=== PATIENT | male | born 1950 | race Caucasian/White ===

== ENCOUNTER → 2019-08-24 | Outpatient (CLI) | payer MEDICARE | END | disposition home or self-care (01) | LOC: LAB 13:29 → LAB SHORT 13:29 | PROVIDERS: Hospitalist | DX: Z12.5 Encounter for screening for malignant neoplasm of prostate (principal); N52.9 Male erectile dysfunction, unspecified; R68.82 Decreased libido | CPT/HCPCS: 84403; G0103 ==

== ENCOUNTER 2020-06-06 13:34 | Day surgery (SDC) | payer OTHER ==
[~2020-06-06] VITALS: Ht 175.3 cm; Wt 94.2 kg
[~2020-06-06 13:34] MED LIST: NAPR220 PO
--- NOTE | 2020-06-06 15:25 | NUR ---
Ambulatory in Day Surgery Surgical site prepped with 2% Chlorhexidine cloth wipe. History, Chart, Medications and Allergies reviewed before start of procedure.Lungs clear T/O to Auscultation. Patient confirms NPO status and agrees with scheduled surgery. Patient reports completing Chlorhexadine shower X2 prior to admission to hospital. GAVE PO MEDS AND STARTED VANCOMYCIN PER KEVAN ALONG WITH MOUTHWASH AND NASAL NETWORK DESKTOP SUPPORT SPECIALIST IN [place].
[2020-06-07 05:05] LABS: BASOPHILS ABSOLUTE AUTO 0.02 K/mm3 (0.00-0.23); BASOPHILS PERCENT AUTO 0 % (0-2); EOSINOPHILS ABSOLUTE AUTO 0.01 K/mm3 (0.00-0.68); EOSINOPHILS PERCENT AUTO 0 % (0-6); Hematocrit 45.3 % (37.0-53.0); Hemoglobin 14.9 g/dL (13.5-17.5); IMMATURE GRAN ABSOLUTE AUTO 0.07 K/mm3 (0.00-0.10); IMMATURE GRAN PERCENT AUTO 1 % (0-1); LYMPHOCYTES ABSOLUTE AUTO 1.12 K/mm3 (0.84-5.20); LYMPHOCYTES PERCENT AUTO 8 % (21-46); MONOCYTES ABSOLUTE AUTO 0.95 K/mm3 (0.16-1.47); MONOCYTES PERCENT AUTO 6 % (4-13); Mean Corpuscular HGB 30.3 pg (26.0-34.0); Mean Corpuscular HGB Conc 32.9 g/dL (31.5-36.5); Mean Corpuscular Volume 92 fL (80-100); Mean Platelet Volume 10.9 fL (9.1-12.4); NEUTROPHILS ABSOLUTE AUTO 12.59 K/mm3 (1.96-9.15); NEUTROPHILS PERCENT AUTO 85 % (41-73); Platelet Count 280 K/mm3 (150-400); RDW Coefficient Variation 12.7 % (11.7-14.2); RDW Standard Deviation 43.7 fL (35.1-46.3); Red Blood Cell Count 4.92 M/mm3 (4.30-5.90); White Blood Cell Count 14.76 K/mm3 (4.00-11.30)
[2020-06-07 05:27] LABS: Anion Gap 6 mmol/L (6-16); Blood Urea Nitrogen 11 mg/dL (8-24); CO2, Blood 26 mmol/L (21-32); Calcium, Blood 8.8 mg/dL (8.5-10.1); Chloride, Blood 107 mmol/L (98-108); Creatinine, Blood 0.73 mg/dL (0.60-1.20); Glomerular Filtration Rate >60 (60-); Glucose, Blood 116 mg/dL (70-99); Magnesium, Blood 2.1 mg/dL (1.6-2.4); Potassium, Blood 4.2 mmol/L (3.5-5.5); Sodium, Blood 139 mmol/L (136-145)
--- NOTE | 2020-06-07 06:36 | NUR ---
SHIFT SUMMARY: LUCA IS A&OX4. VSS, NO ACUTE EVENTS OVERNIGHT, ORA. HE IS TOLERATING PO INTAKE WELL. HE REPORTS ADEQUATE PAIN CONTROL WITH THE PHARMACOLOGIC INTERVENTIONS. PAS, FORREST HOSE, AND POLAR PACK IN PLACE. HE IS A ONE PERSON ASSIST TO THE BATHROOM. HE HAS AMBULATED IN THE HALLWAY WITHOUT DIFFICULTY. HE REPORTS NO DIFFICULTIES URINATING AND FEELS THAT HE IS EVACUATING LARGE AMOUNTS EACH VOID. DRESSING TO R KNEE C/D&I. HE IS LYING IN BED WITH HIS CALL LIGHT IN REACH. WILL REPORT TO DAY SHIFT RN.
--- NOTE | 2020-06-07 07:41 | NUR ---
DR HENDRICKSON BEEN HERE AND PLACED NEW DRESSING. PT REPORTS HAVING WALKER PRESENT. REPORTS HAVING MEDICATIONS INCLUDING PAIN MEDICATION AT HOME.
--- NOTE | 2020-06-07 08:07 | NUR ---
Patient gave permisson for this student to particpate in care
[2020-06-07] MEDS ORDERED: ASPI81CH PO (09:00)
[2020-06-07] MEDS ORDERED: OXAYDO5 M1 PO (09:00)
[2020-06-07] MEDS ORDERED: PROM12.5S PO (09:01)
--- NOTE | 2020-06-07 10:11 | NUR ---
DISCHARGE: PT EATING AND DRINKING,VOIDING, PASSING GAS. PT REPORTS PAIN CONTROLLED ON PO PAIN MEDICATION. PT BEEN CLEARED BY THERAPY TO GO HOME. PT REPORTS HAVING PAIN MEDICATION AT HOME. PT HAS OWN WALKER HERE. PT/FAMILY REPORTS UNDERSTANDING OF DISCHARGE INSTRUCTIONS INCLUDING MEDICATIONS, ICE MACHINE, DRESSING CHANGES. PT SENT WITH DRESSING SUPPLIES, WALKER, ICE MACHINE, PAPERWORK, WELL PT'S BELONGINGS. PT FAMILY GIVING PT RIDE HOME.
== END 2020-06-07 10:13 | disposition home or self-care (01) ==
LOC: ORSCMMR 13:34 → ORD 17:15 → SURS 18:29 → ORD 20:30 → ORSCMMR 06-07 10:13 → SURS 06-07 10:13
PROVIDERS: Orthopaedic Surgery
PROC: 8E0YXBZ Computer Assisted Procedure of Lower Extremity (ICD-10-PCS; principal; 2020-06-06 17:15)
PROC: 0SRC069 Replacement of Right Knee Joint with Oxidized Zirconium on Polyethylene Synthetic Substitute, Cemented, Open Approach (ICD-10-PCS; principal; 2020-06-06 17:15)
DX: M17.11 Unilateral primary osteoarthritis, right knee (principal); I10 Essential (primary) hypertension; E66.9 Obesity, unspecified; Z68.31 Body mass index [BMI] 31.0-31.9, adult
CPT/HCPCS: 36415; 73560-RT; 80048; 83735; 85025; 88300; 97110; 97161; 97530; A9270; A9270-GY; C1713; C1776; J0171; J0690; J0735; J1100; J1885; J2250; J2405; J2704; J2795; J3010; J3370; J7120

== ENCOUNTER 2021-07-17 10:56 | Day surgery (SDC) | payer OTHER ==
[~2021-07-17] VITALS: Ht 175.3 cm; Wt 94.2 kg
[~2021-07-17 10:56] MED LIST changes: +ASPI81CH PO; +HYDR1TAB94 PO; +LOSA25 PO; +OXAYDO5 M1 PO; +PROM12.5S PO
--- NOTE | 2021-07-17 12:39 | NUR ---
History, Chart, Medications and Allergies reviewed before start of procedure. Lungs clear T/O to Auscultation. Patient confirms NPO status and agrees with scheduled surgery. Pre-Op teaching done. Pt verbalizes understanding. Patient reports completing Chlorhexadine shower X2 prior to admission to hospital.
--- NOTE | 2021-07-17 14:01 | NUR ---
PT TO BATHROOM AND BACK. REPORT TO DWIGHT YATES.
--- NOTE | 2021-07-17 19:16 | NUR ---
SHIFT SUMMARY PT A&OX4, VSS, S/P L TKA, DRESSING CDI, WIGGLES TOES. CHERI PO. AWAITING POST OP VOID. REPORT GIVEN TO DIANA YATES.
--- NOTE | 2021-07-17 22:14 | NUR ---
Pt walked in the mae x1 roughly 100 feet. Up to bathroom as well and having urge to urinate, but unable. BS >1100cc's. SC for 1600cc's of clear yellow urine. Will reassess voiding per orders. Pt now more comfortable and resting in bed. No c/o pain. Fluids infusing per order. WCTM
--- NOTE | 2021-07-18 03:12 | NUR ---
SHIFT SUMMARY Pt A/Ox4, VSS. Surgical FANTASMA/PP/stockings to LLE C/D/I. Neuro vasc intact. Pain controlled with scheduled/PRN medications. Fluids infused over night & KVO at 0310 after spontaneous void of 900cc's. Tolerating oral fluids. Antibiotics infused per EMAR. Pt standby assist with walker when walking to bathroom or in hallway. WCTM
[2021-07-18 04:07] LABS: BASOPHILS ABSOLUTE AUTO 0.01 K/mm3 (0.00-0.23); BASOPHILS PERCENT AUTO 0 % (0-2); EOSINOPHILS PERCENT AUTO 0 % (0-6); Hematocrit 40.3 % (37.0-53.0); Hemoglobin 13.6 g/dL (13.5-17.5); IMMATURE GRAN ABSOLUTE AUTO 0.08 K/mm3 (0.00-0.10); IMMATURE GRAN PERCENT AUTO 1 % (0-1); LYMPHOCYTES ABSOLUTE AUTO 0.86 K/mm3 (0.84-5.20); LYMPHOCYTES PERCENT AUTO 6 % (21-46); MONOCYTES ABSOLUTE AUTO 0.83 K/mm3 (0.16-1.47); MONOCYTES PERCENT AUTO 6 % (4-13); Mean Corpuscular HGB 31.1 pg (26.0-34.0); Mean Corpuscular HGB Conc 33.7 g/dL (31.5-36.5); Mean Corpuscular Volume 92 fL (80-100); Mean Platelet Volume 10.7 fL (9.1-12.4); NEUTROPHILS ABSOLUTE AUTO 12.39 K/mm3 (1.96-9.15); NEUTROPHILS PERCENT AUTO 87 % (41-73); Platelet Count 282 K/mm3 (150-400); RDW Coefficient Variation 13.1 % (11.7-14.2); RDW Standard Deviation 44.6 fL (35.1-46.3); Red Blood Cell Count 4.38 M/mm3 (4.30-5.90); White Blood Cell Count 14.17 K/mm3 (4.00-11.30)
[2021-07-18 05:12] LABS: Anion Gap 9 mmol/L (6-16); Blood Urea Nitrogen 13 mg/dL (8-24); Bun/Creatinine Ratio 19.1 (12.0-20.0); CO2, Blood 23 mmol/L (21-32); Calcium, Blood 8.8 mg/dL (8.5-10.1); Chloride, Blood 107 mmol/L (98-108); Creatinine, Blood 0.68 mg/dL (0.60-1.20); Glomerular Filtration Rate >60 (60-); Glucose, Blood 116 mg/dL (70-99); Magnesium, Blood 1.9 mg/dL (1.6-2.4); Potassium, Blood 4.2 mmol/L (3.5-5.5); Sodium, Blood 139 mmol/L (136-145)
--- NOTE | 2021-07-18 10:57 | NUR ---
DISCHARGE SUMMARY PT A&OX4, VSS, LEFT FLOOR VIA WC WITH ROTATING EQUIPMENT SPECIALIST, TO GO HOME WITH , WITH ALL PERSONAL POSSESSIONS INCLUDING DC INSTRUCTIONS, 2 AQUACEL DRESSINGS; PT REP HAVING NARC SCRIPT FILLED AND MEDS AT HOME. DC INS PROVIDED. PT REP UNDERSTANDING THOSE INSTRUCTIONS INCLUDING FU IN 2 WEEKS, TEDS X 6 WK, POLAR FAINA AT REST, DRESSING CHANGES, ASA BID. IV DC'D.
== END 2021-07-18 10:30 | disposition home or self-care (01) ==
LOC: ORSCMMR 10:56 → ORD 12:30 → ORSCMMR 12:30 → SURS 17:41 → ORSCMMR 07-18 10:30
PROVIDERS: Orthopaedic Surgery
PROC: 8E0YXBZ Computer Assisted Procedure of Lower Extremity (ICD-10-PCS; principal; 2021-07-17 12:30)
PROC: 0SRD0J9 Replacement of Left Knee Joint with Synthetic Substitute, Cemented, Open Approach (ICD-10-PCS; principal; 2021-07-17 12:30)
DX: M17.12 Unilateral primary osteoarthritis, left knee (principal); I10 Essential (primary) hypertension; Z79.899 Other long term (current) drug therapy
CPT/HCPCS: 36415; 73560-LT; 80048; 83735; 85025; 94760; 97110; 97116; 97161; A9270; C1713; C1776; J0171; J0690; J0735; J1100; J1885; J2250; J2704; J2795; J3010; J3370; J7120

== ENCOUNTER 2023-05-12 07:16 | Day surgery (SDC) | payer OTHER ==
[~2023-05-12] VITALS: Ht 175.3 cm; Wt 93.3 kg
[2023-05-12 08:40] VITALS: BP 136/86
--- NOTE | 2023-05-12 08:48 | NUR ---
05/12/23 0848 Jaren Lew IV REMOVED INTACT. SITE WNL.
== END 2023-05-12 08:59 | disposition home or self-care (01) ==
LOC: ORSCSDS 07:16
PROVIDERS: Student in an Organized Health Care Education/Training Program
PROC: 08RK3JZ Replacement of Left Lens with Synthetic Substitute, Percutaneous Approach (ICD-10-PCS; principal; 2023-05-12 08:30)
DX: H25.13 Age-related nuclear cataract, bilateral (principal); I10 Essential (primary) hypertension; Z79.899 Other long term (current) drug therapy
CPT/HCPCS: J2250; J3010; J7040; V2632

== ENCOUNTER 2023-06-08 06:06 | Day surgery (SDC) | payer OTHER ==
--- NOTE | 2023-06-08 07:30 | NUR ---
06/08/[address] PERFORMING BLOCK R SHOULDER. TIME OUT PERFORMED BY NIKKIE. ALL CONSENTS SIGNED.
--- NOTE | 2023-06-08 10:15 | NUR ---
06/08/23 1015 Aristeo Hardy PT HAD ROPIVACAINE 0.5% WITH EPI 1:200,[address] MADRIGAL MIXED MEDICATION.
[2023-06-08 12:16] VITALS: BP 117/64
--- NOTE | 2023-06-08 12:32 | NUR ---
06/08/23 1232 Valentina Franz IV REMOVED NO ISSUES AND INTACT./
== END 2023-06-08 12:30 | disposition home or self-care (01) ==
LOC: ORSCSDS 06:06
PROVIDERS: Orthopaedic Surgery
PROC: 0RRJ00Z Replacement of Right Shoulder Joint with Reverse Ball and Socket Synthetic Substitute, Open Approach (ICD-10-PCS; principal; 2023-06-08 07:30)
DX: M19.011 Primary osteoarthritis, right shoulder (principal); I10 Essential (primary) hypertension; Z79.899 Other long term (current) drug therapy
CPT/HCPCS: 73030; A9270; C1713; C1776; J0171; J0696; J1100; J2250; J2371; J2405; J2704; J2795; J3010; J7120